=== PATIENT | female | born 1935 | race Caucasian/White ===

== ENCOUNTER → 2017-01-28 | Outpatient (CLI) | payer MEDICARE ==
--- NOTE | 2017-01-29 06:52 | MM ---
Reason for exam: additional evaluation requested from prior study. Last mammogram was performed 1 year and 2 months ago. History: Patient is postmenopausal and has history of breast cancer at age 74. Family history of breast cancer in cousin. Radiation therapy, 2010. Malignant left breast needle localization of the left breast, May 07, 2010. Malignant left mammotome panel of the left breast, April 17, 2010. Took estrogen for 5 years beginning at age 58. Physical Findings: Nurse did not find any significant physical abnormalities on exam. MG 3D Diag Mammo W/Cad REANNA Bilateral CC and MLO view(s) were taken. Prior study comparison: November 28, 2015, right breast MG 3d diag mammo w/cad RT. May 29, 2015, bilateral MG 3d diag mammo w/cad REANNA. No significant new findings when compared with previous films. These results were verbally communicated with the patient and result sheet given to the patient on 01/28/17. ASSESSMENT: Benign, BI-RAD 2 RECOMMENDATION: Routine screening mammogram of both breasts in 1 year.
--- NOTE | 2017-02-02 08:07 | BD ---
EXAMINATION TYPE: MG DEXA axial skeleton. DATE OF EXAM: 01/28/2017 COMPARISON: 2012 CLINICAL HISTORY: breast ca, osteoporosis Height: 5' Weight: 140 FRAX RISK QUESTIONS: Alcohol (3 or more units per day): no Family History (Parent hip fracture): no Glucocorticoids (More than 3mos): no (Ex: prednisone, prednisolone, methylprednisolone, dexamethasone, and hydrocortisone). History of Fracture in Adulthood: yes Secondary Osteoporosis: 1. Type 1 Diabetes: no 2. Hyperthyroidism: no 3. Menopause before 45: no 4. Malnutrition: no 5. Chronic liver disease: no Rheumatoid Arthritis: no Current Tobacco Use: no RISK FACTORS HISTORY OF: Hip Fracture Right When: 2013 Surgery to right Hip When: 2013 Family History of Osteoporosis: Active: Postmenopausal woman: Lost more than 2 inches in height since high school: MEDICATIONS: Osteoporosis Medications: Which medication: Fosamax How Lon years Additional Medications: heart Additional History: breast cancer 2006, thyroid radiation 2009 EXAM MEASUREMENTS: Bone mineral densitometry was performed using the Impact[employer] System. Bone mineral density as measured about the Lumbar spine is: ----- L1-L4(G/cm2): 0.984 T Score Values are as follows: ----- L2: -1.2 ----- L3: -2.4 ----- L4: -2.5 ----- L1-L4: -1.6 Bone mineral density has: Increased 3.5% since study of: 01/31/2013 Bone mineral density about the L hip (g/cm2): 0.688 T Score values are as follows: -----L Neck: -2.5 -----L Total: -2.1 Bone mineral density has: Increased 1.9% since study of: 01/31/2013 IMPRESSION: Osteopenia (T Score between -2.5 and -1) as noted by T score values There is slightly increased risk of fracture and the patient may be considered for treatment. Re-Screen 2-5 years. NOTE: T-SCORE=SD OF THE YOUNG ADULT MEAN.
== END | disposition home or self-care (01) ==
LOC: RADMAMWWP 15:39
PROVIDERS: ATTEND Obstetrics & Gynecology
DX: Z08 Encounter for follow-up examination after completed treatment for malignant neoplasm (principal); M85.88 Other specified disorders of bone density and structure, other site; Z85.3 Personal history of malignant neoplasm of breast
CPT/HCPCS: 77080; G0204; G0279

== ENCOUNTER → 2018-03-23 | Outpatient (CLI) | payer MEDICARE ==
--- NOTE | 2018-03-23 15:07 | MM ---
Reason for exam: additional evaluation requested from prior study. Last mammogram was performed 1 year and 2 months ago. History: Patient is postmenopausal and has history of breast cancer at age 74. Family history of breast cancer in cousin. Radiation therapy, 2010. Malignant left breast needle localization of the left breast, May 07, 2010. Malignant left mammotome panel of the left breast, April 17, 2010. Took estrogen for 5 years beginning at age 58. Physical Findings: Nurse did not find any significant physical abnormalities on exam. MG 3D Diag Mammo W/Cad REANNA Bilateral CC and MLO view(s) were taken. Prior study comparison: January 28, 2017, bilateral MG 3d diag mammo w/cad REANNA. November 28, 2015, right breast MG 3d diag mammo w/cad RT. The breast tissue is heterogeneously dense. This may lower the sensitivity of mammography. There are benign appearing round calcifications bilaterally. Right lower inner quadrant middle depth focal asymmetry persists on spot compression views. Left post surgical change. These results were verbally communicated with the patient and result sheet given to the patient on 03/23/18. ASSESSMENT: Incomplete: need additional imaging evaluation, BI-RAD 0 RECOMMENDATION: Ultrasound of the right breast. lower inner quadrant
--- NOTE | 2018-03-23 15:10 | USB ---
Reason for exam: additional evaluation requested from abnormal screening. History: Patient is postmenopausal and has history of breast cancer at age 74. Family history of breast cancer in cousin. Radiation therapy, 2011. Malignant left breast needle localization of the left breast, May 07, 2010. Malignant left mammotome panel of the left breast, April 17, 2010. Took estrogen for 5 years beginning at age 58. US Breast Limited RT Right limited breast ultrasound including focal area of concern, retroareolar and axilla demonstrates a 0.4 x 0.2 x 0.4cm lesion too small to characterize at 4 o'clock vascular, new on mammogram, suspicious, biopsy recommended and a 0.4 x 0.2 x 0.3cm lesion too small to characterize at 4 o'clock recommendation to be based on above biopsy results. These results were verbally communicated with the patient and result sheet given to the patient on 03/23/18. ASSESSMENT: Suspicious, BI-RAD 4 RECOMMENDATION: Ultrasound core biopsy of the right breast. Called Dr. Rueda with mammographic findings and has scheduled an appointment for the patient for 03/25/18 at 11:[address] Saleem. PRELIMINARY REPORT CALLED AND FAXED TO DR. SALEEM ON 03/23/18.
== END ==
LOC: RADMAMWWP 12:47
PROVIDERS: ATTEND Obstetrics & Gynecology
DX: R92.8 Other abnormal and inconclusive findings on diagnostic imaging of breast (principal); Z85.3 Personal history of malignant neoplasm of breast
CPT/HCPCS: 77066; 76642; G0279; 77062

== ENCOUNTER → 2018-04-07 | Day surgery (SDC) | payer MEDICARE ==
[2018-04-07 11:42] VITALS: RESP 16; BMI 25.2
[2018-04-07 12:54] VITALS: BP 138/81; PULSE 73; TEMP 98.1
--- NOTE | 2018-04-07 14:20 | USB ---
EXAMINATION TYPE: US biopsy breast VAD RT DATE OF EXAM: 04/07/2018 CLINICAL HISTORY: R92.8 Abnormal Mammogram. TECHNIQUE: Ultrasound guided core biopsy of right 4:00 breast. COMPARISON: NONE FINDINGS: The procedure of ultrasound guided core biopsy was explained to the patient. Benefits, alternatives, and risks were discussed. An informed consent was then obtained. The patient was placed in supine positioning for imaging and for the procedure. The overlying skin was prepped and draped in usual sterile fashion. Lidocaine buffered with bicarbonate was used as anesthetic into the skin and subcutaneous tissue up to area of concern in the right 4:00 breast. Under ultrasound guidance, a 12-gauge vacuum assisted biopsy gun device was used to obtain 4 core samples. Following this, a biopsy clip was left in lesion. Postprocedural mammogram demonstrates appropriate deployment. The patient tolerated the procedure well without any immediate complication. The patient was kept in the radiology department for short stay after the procedure and then discharged home in stable condition. IMPRESSION: Successful, uncomplicated ultrasound guided core biopsy of area of concern in the right 4:00 breast, full pathology results to follow. Pathology Results: Benign BREAST, RIGHT 4 O'CLOCK, NEEDLE CORE BIOPSY: Moderate duct hyperplasia with apocrine metaplasia, duct cystic changes and stromal fibrosis. Recommendation Follow up mammogram of the right breast in 6 months. LENY
--- NOTE | 2018-04-08 08:07 | MM ---
Reason for exam: additional evaluation requested from abnormal screening. Last mammogram was performed less than 1 month ago. History: Patient is postmenopausal and has history of breast cancer at age 74. Family history of breast cancer in cousin. Radiation therapy, 2010. Malignant left breast needle localization of the left breast, May 07, 2010. Malignant left mammotome panel of the left breast, April 17, 2010. Took estrogen for 5 years beginning at age 58. MG Diagnostic Mammo RT Wo CAD CC and MLO view(s) were taken of the right breast. Prior study comparison: March 23, 2018, bilateral MG 3d diag mammo w/cad REANNA. January 28, 2017, bilateral MG 3d diag mammo w/cad REANNA. ASSESSMENT: Post procedure mammogram for marker placement RECOMMENDATION: Ultrasound of the right breast in 6 months. PENDING PATHOLOGY RESULTS.
== END ==
LOC: RADUSWWP 11:18
PROVIDERS: ATTEND Surgery
DX: N60.91 Unspecified benign mammary dysplasia of right breast (principal); N60.81 Other benign mammary dysplasias of right breast; N60.31 Fibrosclerosis of right breast
CPT/HCPCS: 88305; 77065; 19083; A4648; J2001

== ENCOUNTER 2018-10-16 16:15 | Emergency (ER) | payer MEDICARE ==
--- NOTE | 2018-10-16 17:19 | CT ---
EXAMINATION TYPE: CT brain cspine wo con DATE OF EXAM: 10/16/2018 COMPARISON: Brain 11/21/2015 HISTORY: 82-year-old female with pain after Fall. CT DLP: 1201.2 mGycm Automated exposure control for dose reduction was used. Technique: Examination of the head was done in axial plane without intravenous contrast. Coronal and sagittal reconstructions performed. CT of the cervical spine was obtained in axial plane without intravenous injection of contrast mater ial. Coronal and sagittal reformatted images were obtained from the axial views for evaluation of f ractures, spinal alignment and canal. FINDINGS: Head: There is linear beam hardening artifact projecting across the left cervical hemisphere extending from front to back. Allowing for this limitation, there is no evidence of acute intracranial hemorrhage, acute ischemic changes, mass, mass-effect, or extra-axial fluid collection. There is no effacement of cerebral sulc i or basal subarachnoid cisterns. There is no hydrocephalus. There is no midline shift. Newman-white matter distinction is preserved. Paranasal sinuses and mastoid air cells well pneumatized. Orbits and globes are intact. Cervical spine: Prominent lobulated thyroid gland. Nonemergent follow-up thyroid ultrasound to further evaluate. No craniocervical junction abnormality, predental space widening, or prevertebral soft tissue swellin g. Degenerative changes at the C1 dens articulation. Moderate to advanced degenerative disc disease t hroughout with loss of disc height and disc osteophyte complex formation. No acute fracture of the cervical spine. Grade 1 anterolisthesis at C7-T1, T1-T2, and T2-T3 on a degenerative basis. Scattered facet and uncov ertebral joint degenerative changes present throughout. Variable mild neuroforaminal narrowing throughout. Sagittal and coronal reformatted images confirm above findings. COMBINED IMPRESSION: 1. No acute intracranial abnormality seen. 2. No acute fracture of the cervical spine. Degenerative grade 1 anterolisthesis at C7-T1, T1-T2, and T2-T3. Moderate multilevel spondylotic change. 3. Lobulated, enlarged thyroid gland. Nonemergent thyroid ultrasound follow-up recommended.
--- NOTE | 2018-10-16 17:23 | XR ---
EXAMINATION TYPE: XR shoulder complete 3 views RT, XR Hip Complete 2 views RT XR knee complete 3 views RT DATE OF EXAM: 10/16/2018 COMPARISON: Right rib series 10/15/2013 HISTORY: 82-year-old female with pain after fall FINDINGS: Right shoulder: Bony deformity to the distal clavicle suggests old healed fracture deformity. Subacromial space is pr eserved. Multiple old right-sided rib fracture deformities. No acute fracture, subluxation, or disloc ation seen. Right hip: Evidence of prior intramedullary nail fixation. Prominent bony hyperostosis is present. No periprosth etic fracture. Right knee: Right knee total arthroplasty is present. There may be some medial soft tissue swelling. No knee join t effusion or periprosthetic fracture. Alignment grossly anatomic. IMPRESSION: 1. Right shoulder: Old healed fracture deformity to multiple right-sided ribs and the distal right cl avicle. No acute osseous abnormality seen. 2. Right hip: Prior intramedullary nail and screw fixation of the proximal femur. There is some promi nent hyperostotic changes without acute osseous body seen. 3. Right knee: Uncomplicated right knee total arthroplasty.
--- NOTE | 2018-10-16 18:23 | ED ---
Fall HPI - General Chief Complaint: Fall Stated Complaint: fall rt facial injury Time Seen by Provider: 10/16/18 16:25 Source: patient, family Mode of arrival: wheelchair - History of Present Illness Initial Comments: The patient is an 82-year-old female with past medical history of a right hip and knee replacement who presents to the emergency room after she sustained a fall. The patient does require wearing a shoe with a right heel lift. The patient was walking on unlevel ground in her backyard when she sustained a fall. It was witnessed by her son. The patient did fall forward and hit the right side of her face on the grass. There is no loss of consciousness. The patient was not confused after the incident. There is no report of any headaches, visual changes, unilateral numbness or weakness. She denies any neck pain. She does not take any blood thinners other than an 81 mg aspirin. She does have a history of A. fib however is not on any anticoagulation. She denies having a syncopal episode and states that it was a mechanical fall. She also fell onto her right shoulder which is nontender. She continues to have full normal range of motion. She denies any numbness or tingling in her hand. 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 She also reports to chronic pain in her right hip and mild pain in her right knee. She was able to ambulate after the incident. Her family did bring her by private vehicle to the ER. There are no other alleviating, precipitating or modifying factors. - Related Data Home Medications Medication Instructions Recorded Confirmed Cholecalciferol [Vitamin D3] 1,000 unit PO DAILY 10/15/13 04/07/18 Diltiazem Cd [Cardizem CD] 180 mg PO DAILY 10/15/13 04/07/18 Fish Oil/Dha/Epa [Fish Oil 1,200 1 cap PO DAILY 10/15/13 04/07/18 mg Fish Oil] Lutein 10 mg PO DAILY 10/15/13 04/07/18 Multivitamins, Thera [Multivitamin] 1 tab PO DAILY 10/15/13 04/07/18 Vitamin E (Dl,Tocopheryl Acet) 400 unit PO DAILY 10/15/13 04/07/18 [Vitamin E] Allergies Allergy/AdvReac Type Severity Reaction Status Date / Time No Known Allergies Allergy Verified 04/07/18 14:06 Review of Systems ROS Statement: Those systems with pertinent positive or pertinent negative responses have been documented in the HPI. ROS Other: All systems not noted in ROS Statement are negative. Past Medical History Past Medical History: Cancer, Hyperlipidemia Additional Past Medical History / Comment(s): left breast cancer 2010, irreg heart beat History of Any Multi-Drug Resistant Organisms: None Reported Past Surgical History: Appendectomy, Breast Surgery, Joint Replacement Additional Past Surgical History / Comment(s): left breast lumpectomy 2010, d and c, right knee replacement Past Anesthesia/Blood Transfusion Reactions: No Reported Reaction Past Psychological History: No Psychological Hx Reported Smoking Status: Never smoker Past Alcohol Use History: None Reported Past Drug Use History: None Reported General Exam Limitations: no limitations General appearance: alert, in no apparent distress Head exam: Present: normocephalic, other (The patient has mild bruising over her right jewish. Negative raccoon eyes. No Avalos sign. No scalp hematomas. No step-offs) Eye exam: Present: normal appearance, PERRL, EOMI. Absent: scleral icterus, conjunctival injection, periorbital swelling ENT exam: Present: normal exam, mucous membranes moist Neck exam: Present: normal inspection, full ROM. Absent: tenderness, meningismus, lymphadenopathy Respiratory exam: Present: normal lung sounds bilaterally. Absent: respiratory distress, wheezes, rales, rhonchi, stridor Cardiovascular Exam: Present: regular rate, normal rhythm, normal heart sounds. Absent: systolic murmur, diastolic murmur, rubs, gallop, clicks GI/Abdominal exam: Present: soft, normal bowel sounds. Absent: distended, tenderness, guarding, rebound, rigid Extremities exam: Present: normal inspection, full ROM, normal capillary refill, other (The patient has mild tenderness to the right AC joint. She has full normal flexion and extension at the right elbow. Intact sensation over the medial, lateral and dorsal aspects of the arm. 2+ radial and ulnar pulses. Equal building maintenance worker strength. No spinous process tenderness. The patient has 5 over 5 muscle strength in her bilateral lower extremities. She does have chronic shortening of her right leg. No tenderness to palpation of the right hip or knee no ecchymosis. 2 dorsalis pedis and posterior tibial pulses. Intact 2 point discrimination and soft touch over the medial, lateral, and dorsal aspects of the foot). Absent: tenderness, pedal edema, joint swelling, calf tenderness Back exam: Present: normal inspection. Absent: paraspinal tenderness, vertebral tenderness Neurological exam: Present: alert, oriented X3, CN II-XII intact, normal gait. Absent: motor sensory deficit Psychiatric exam: Present: normal affect, normal mood Skin exam: Present: warm, dry, intact, normal color. Absent: rash Course Vital Signs 10/16/18 10/16/18 16:20 18:42 Temperature 97.8 F 97.7 F Pulse Rate 63 91 Respiratory 18 16 Rate Blood Pressure 159/88 132/88 O2 Sat by Pulse 98 100 Oximetry Medical Decision Making - Medical Decision Making The patient was placed into room 27. I performed a full physical exam. I did recommend CT of the patient's brain and cervical spine due to her blunt head trauma. I also recommended an x-ray of the patient's right shoulder, right hip and right knee. Upon return results I did discuss them with the patient. I offered her something for pain control however the patient states that her pain was minimal. The patient was ambulatory within the emergency room without difficulty. The patient will be discharged home and is to follow-up with her primary care physician in 2-4 days. Should she have any new or worsening symptoms, she should return to the emergency room. She can take Tylenol for pain. Patient and her family understood. She was discharged home in stable condition. - Radiology Data Radiology results: report reviewed Disposition Clinical Impression: Fall Disposition: HOME SELF-CARE Condition: Good Instructions (If sedation given, give patient instructions): Fall Prevention for Older Adults (ED) Additional Instructions: Follow-up with your primary care physician in 2-4 days. Take Tylenol for pain. Return to the emergency room for any new or worsening symptoms Is patient prescribed a controlled substance at d/c from ED?: No Referrals: Tyler Etienne MD [Primary Care Provider] - 1-2 days Time of Disposition: 18:23
[2018-10-16 18:44] VITALS: BP 132/88; PULSE 91; RESP 16; TEMP 97.7
== END 2018-10-16 18:43 | disposition home or self-care (01) ==
LOC: EC 16:15
DX: S00.83XA Contusion of other part of head, initial encounter (principal); M25.561 Pain in right knee; M25.551 Pain in right hip; I48.91 Unspecified atrial fibrillation; Z85.3 Personal history of malignant neoplasm of breast; Z96.651 Presence of right artificial knee joint; Z96.641 Presence of right artificial hip joint; Z79.899 Other long term (current) drug therapy; W19.XXXA Unspecified fall, initial encounter; Y93.01 Activity, walking, marching and hiking; Y92.096 Garden or yard of other non-institutional residence as the place of occurrence of the external cause
CPT/HCPCS: 70450; 72125; 73502; 99284

== ENCOUNTER → 2019-05-02 | Outpatient (CLI) | payer MEDICARE ==
--- NOTE | 2019-05-02 14:49 | MM ---
Reason for exam: additional evaluation requested from prior study. Last mammogram was performed 1 year and 1 month ago. History: Patient is postmenopausal and has history of breast cancer at age 74. Family history of breast cancer in cousin. Benign US biopsy breast VAD RT of the right breast, April 07, 2018. Radiation therapy, 2010. Malignant left breast needle localization of the left breast, May 07, 2010. Malignant left mammotome panel of the left breast, April 17, 2010. Took estrogen for 5 years beginning at age 58. Physical Findings: Nurse did not find any significant physical abnormalities on exam. MG 3D Diag Mammo W/Cad REANNA Bilateral CC and MLO view(s) were taken. Prior study comparison: April 07, 2018, right breast MG diagnostic mammo RT wo CAD. March 23, 2018, bilateral MG 3d diag mammo w/cad REANNA. The breast tissue is heterogeneously dense. This may lower the sensitivity of mammography. Previous mammotome biopsy in the right breast. Surgical clips left breast. No significant new findings when compared with previous films. These results were verbally communicated with the patient and result sheet given to the patient on 05/02/19. ASSESSMENT: Benign, BI-RAD 2 RECOMMENDATION: Follow-up diagnostic mammogram of both breasts in 1 year.
--- NOTE | 2019-05-02 14:50 | USB ---
Reason for exam: additional evaluation requested from prior study. History: Patient is postmenopausal and has history of breast cancer at age 74. Family history of breast cancer in cousin. Benign US biopsy breast VAD RT of the right breast, April 07, 2018. Radiation therapy, 2010. Malignant left breast needle localization of the left breast, May 07, 2010. Malignant left mammotome panel of the left breast, April 17, 2010. Took estrogen for 5 years beginning at age 58. US Breast RT Right complete breast ultrasound includes all four quadrants, the retroareolar region and axilla. Finding demonstrates a 1.3 x 0.9 x 0.3cm cluster at 3 o'clock. These results were verbally communicated with the patient and result sheet given to the patient on 05/02/19. ASSESSMENT: Probably benign, BI-RAD 3 RECOMMENDATION: Ultrasound of the right breast in 6 months.
--- NOTE | 2019-05-02 16:40 | BD ---
EXAMINATION TYPE: Axial Bone Density DATE OF EXAM: 05/02/2019 COMPARISON: 01/28/2017 CLINICAL HISTORY: Height: 60.2 IN Weight: 148 LBS FRAX RISK QUESTIONS: Family History (Parent hip fracture): YES FATHER History of Fracture in Adulthood: YES RT HIP AGE 78 RISK FACTORS HISTORY OF: Hip Fracture (Right): YES When: AGE 78 Family History of Osteoporosis: YES MOTHER, SISTER Active: YES Postmenopausal woman: YES AGE 45 Take estrogen and/or progesterone medications: NOT NOW How long: TOOK AGE [age] Frequent falls: YES MEDICATIONS: Osteoporosis Medications: NOT NOW Which medication: Fosamax How Lon YEARS Additional Medications: HEART MEDS, VITAMIN D Additional History: BREAST CANCER WITH RADIATION EXAM MEASUREMENTS: Bone mineral densitometry was performed using the [employer] System. Bone mineral density as measured about the Lumbar spine is: ----- L1-L4(G/cm2): 1.034 T Score Values are as follows: ----- L2: -0.6 ----- L3: -2.0 ----- L4: -2.3 ----- L1-L4: -1.2 Bone mineral density has: Increased 4.3% since study of: 01/28/2017 Bone mineral density about the L hip (g/cm2): 0.714 T Score values are as follows: -----L Neck: -2.3 -----L Total: -2.2 Bone mineral density has: Decreased -1.1% since study of: 01/28/2017 IMPRESSION: Osteopenia (T Score between -2.5 and -1). There is slightly increased risk of fracture and the patient may be considered for treatment. Re-Screen 2-5 years. NOTE: T-SCORE=SD OF THE YOUNG ADULT MEAN.
== END | disposition home or self-care (01) ==
LOC: RADMAMWWP 12:55
PROVIDERS: ATTEND Obstetrics & Gynecology
DX: R92.8 Other abnormal and inconclusive findings on diagnostic imaging of breast (principal); M81.0 Age-related osteoporosis without current pathological fracture; M85.80 Other specified disorders of bone density and structure, unspecified site; Z85.3 Personal history of malignant neoplasm of breast
CPT/HCPCS: 77080; 77066; 76641; G0279; 77062

== ENCOUNTER → 2020-09-17 | Outpatient (CLI) | payer MEDICARE ==
[2020-09-17 22:11] LABS: African American GFR (CKD) 90.9 (60.0-200.0); Anion Gap 6.3 mmol/L (4.00-12.00); BUN/Creat Ratio 25.71 Ratio (12.00-20.00); Carbon Dioxide 31.7 mmol/L (21.6-31.8); Magnesium 2.3 mg/dL (1.5-2.4); Non-African American GFR(CKD) 78.5 (60.0-200.0); Potassium 4.6 mmol/L (3.5-5.5)
[2020-09-17 22:19] LABS: T4, Free (Free Thyroxine) 1.4 ng/dL (0.80-1.80)
== END | disposition home or self-care (01) ==
LOC: LABWHC1 13:44
PROVIDERS: ATTEND Nurse Practitioner Family
DX: I48.0 Paroxysmal atrial fibrillation (principal); I47.2 Ventricular tachycardia
CPT/HCPCS: 36415; 80048; 83735; 84439; 84443

== ENCOUNTER 2021-01-16 13:38 | Emergency (ER) | payer MEDICARE ==
[2021-01-16 13:47] VITALS: BP 133/74; PULSE 95; RESP 16; TEMP 98.6
[2021-01-16] MEDS ORDERED: ACETAMINOPHEN TAB 325 MG TAB PO STA (13:58)
--- NOTE | 2021-01-16 13:59 | ED ---
General Adult HPI - General Chief complaint: Extremity Injury, Upper Stated complaint: Rt Wrist Injury Time Seen by Provider: 01/16/21 13:51 Source: patient, RN notes reviewed Mode of arrival: ambulatory Limitations: no limitations - History of Present Illness Initial comments: 85-year-old female presents to the emergency room for a chief complaint of right wrist pain. Last night patient was walking in the garden with her when he fell. She reports he was holding her hand and she fell with him onto the right wrist. States it is very painful. Patient denies any blood thinners. Denies any other injuries.Patient has no other complaints at this time including shortness of breath, chest pain, abdominal pain, nausea or vomiting, headache, or visual changes. - Related Data Home Medications Medication Instructions Recorded Confirmed Cholecalciferol [Vitamin D3] 1,000 unit PO DAILY 10/15/13 04/07/18 Diltiazem Cd [Cardizem CD] 180 mg PO DAILY 10/15/13 04/07/18 Fish Oil/Dha/Epa [Fish Oil 1,200 1 cap PO DAILY 10/15/13 04/07/18 mg Fish Oil] Lutein 10 mg PO DAILY 10/15/13 04/07/18 Multivitamins, Thera [Multivitamin] 1 tab PO DAILY 10/15/13 04/07/18 Vitamin E (Dl,Tocopheryl Acet) 400 unit PO DAILY 10/15/13 04/07/18 [Vitamin E] Allergies Allergy/AdvReac Type Severity Reaction Status Date / Time No Known Allergies Allergy Verified 01/16/21 13:47 Review of Systems ROS Statement: Those systems with pertinent positive or pertinent negative responses have been documented in the HPI. ROS Other: All systems not noted in ROS Statement are negative. Past Medical History Past Medical History: Cancer, Hyperlipidemia Additional Past Medical History / Comment(s): left breast cancer 2009, irreg heart beat History of Any Multi-Drug Resistant Organisms: None Reported Past Surgical History: Appendectomy, Breast Surgery, Joint Replacement Additional Past Surgical History / Comment(s): left breast lumpectomy 2010, d and c, right knee replacement Past Anesthesia/Blood Transfusion Reactions: No Reported Reaction Past Psychological History: No Psychological Hx Reported Past Alcohol Use History: None Reported Past Drug Use History: None Reported General Exam Limitations: no limitations General appearance: alert, in no apparent distress Head exam: Present: atraumatic, normocephalic, normal inspection Eye exam: Present: normal appearance, PERRL, EOMI. Absent: scleral icterus, conjunctival injection ENT exam: Present: normal exam, mucous membranes moist Neck exam: Present: normal inspection, full ROM. Absent: tenderness Respiratory exam: Present: normal lung sounds bilaterally. Absent: respiratory distress, wheezes Cardiovascular Exam: Present: regular rate, normal rhythm, normal heart sounds Extremities exam: Present: tenderness (Generalized tenderness to the right wrist. No significant tenderness in the right hand.), normal capillary refill (Capillary refill less than 2 seconds, radial pulse 2+ right upper extremity.), joint swelling (Moderate edema and ecchymosis noted of the right wrist.), other (Sensation intact right upper extremity.). Absent: full ROM (Patient has pain with flexion and extension of the right wrist.) Course Vital Signs 01/16/21 13:44 Temperature 98.6 F Pulse Rate 95 Respiratory 16 Rate Blood Pressure 133/74 O2 Sat by Pulse 96 Oximetry Procedures - Orthopedic Splinting/Casting Injury #1 Side: right Upper Extremity Injury Location: long arm Upper Extremity Immobilizer: sugar tong splint Additional Comments: Neurovascular status intact after splint applied Medical Decision Making - Medical Decision Making Patient does have edema noted to the right wrist. Radial pulses 2+. X-ray shows an intra-articular impacted fracture of the distal radius with dorsal angulation. Ulnar styloid displaced fracture. Patient was placed in a sugar tong. And I did attempt to apply pressure to reduce the wrist. Patient will follow-up with orthopedics. Will return to the emergency room for any worsening symptoms. Disposition Clinical Impression: Distal radius fracture, right Disposition: HOME SELF-CARE Condition: Good Instructions (If sedation given, give patient instructions): Wrist Fracture in Adults (ED) Additional Instructions: Take Tylenol for pain. Rest ice and elevate the right wrist. Please follow-up with orthopedics. Return to the emergency room for any worsening symptoms. Is patient prescribed a controlled substance at d/c from ED?: No Referrals: Tyler Etienne MD [Primary Care Provider] - 1-2 days Edin Morley MD [STAFF PHYSICIAN] - 1-2 days Time of Disposition: 14:58
--- NOTE | 2021-01-16 14:35 | XR ---
EXAMINATION TYPE: XR hand complete RT DATE OF EXAM: 01/16/2021 COMPARISON: NONE HISTORY: Pain TECHNIQUE: Three views are submitted. FINDINGS: Severe diffuse osteopenia with arthropathy of all MCP, PIP, and DIP joints. Severe arthropathy of the first carpal metacarpal joint. Impacted intra-articular fracture of the distal radius with avulsion of the ulnar styloid. Slight dorsal angulation of the wrist components. IMPRESSION: 1. Impacted distal radial fracture 2. Ulnar styloid fracture. 3. Osteoarthritis
--- NOTE | 2021-01-16 14:38 | XR ---
EXAMINATION TYPE: XR wrist complete RT DATE OF EXAM: 01/16/2021 COMPARISON: NONE HISTORY: Pain TECHNIQUE: Four views submitted. FINDINGS: Diffuse osteopenia with severe narrowing the first carpal metacarpal joint. There is an impacted intr a-articular fracture of the distal radius with dorsal angulation of the wrist components relative to the radius. Displaced ulnar styloid fracture also noted. IMPRESSION: 1. Intra-articular impacted fracture of the distal radius with dorsal angulation. 2. Ulnar styloid displaced fracture.
== END 2021-01-16 15:17 | disposition home or self-care (01) ==
LOC: EC 13:38
DX: S52.501A Unspecified fracture of the lower end of right radius, initial encounter for closed fracture (principal); S52.611A Displaced fracture of right ulna styloid process, initial encounter for closed fracture; E78.5 Hyperlipidemia, unspecified; Z79.899 Other long term (current) drug therapy; Z85.3 Personal history of malignant neoplasm of breast; W18.30XA Fall on same level, unspecified, initial encounter; Y93.01 Activity, walking, marching and hiking
CPT/HCPCS: 29125; 99284